=== PATIENT | male | born 1995 | race African-American/Black ===

== ENCOUNTER 2017-01-24 17:48 | Emergency (ER) | payer MEDICAID ==
[~2017-01-24] VITALS: Ht 177.8 cm; Wt 160.0 kg
[2017-01-24 17:49] VITALS: BP 164/89
== END 2017-01-24 22:14 | disposition left against medical advice (07) ==
LOC: ER 17:48
DX: Z53.21 Procedure and treatment not carried out due to patient leaving prior to being seen by health care provider (principal)